=== PATIENT | male | born 1960 | race Caucasian/White ===

== ENCOUNTER 2017-09-17 06:32 | Emergency (ER) | payer OTHER ==
[~2017-09-17] VITALS: Ht 175.3 cm; Wt 111.0 kg
[2017-09-17 07:32] LABS: MEAN CORPUSCULAR HEMOGLOBIN 33.2 pg (27.5-34.5); MEAN CORPUSCULAR HGB CONC 33.2 g/dL (33.2-36.2); MEAN CORPUSCULAR VOLUME 99.8 fL (81-97); MEAN PLATELET VOLUME 8.4 fL (7.4-10.4); PLATELET COUNT 167 x10^3/uL (130-400); RED BLOOD COUNT 4.65 x10^6/uL (4.38-5.82); RED CELL DISTRIBUTION WIDTH 13.9 % (9.4-14.8)
[2017-09-17 07:48] LABS: BASOPHILS # (AUTO) 0.04 x10^3/uL (0-0.1); BASOPHILS % (AUTO) 0 % (0-1); EOSINOPHILS # (AUTO) 0.07 x10^3/uL (0-0.4); EOSINOPHILS % (AUTO) 1 % (1-7); LYMPHOCYTES # (AUTO) 2.38 x10^3/uL (1-3.4); LYMPHOCYTES % (AUTO) 21 % (22-44); MD SCAN; MONOCYTES # (AUTO) 1.49 x10^3/uL (0.2-0.8); MONOCYTES % (AUTO) 13 % (2-9); NEUTROPHILS # (AUTO) 7.63 x10^3/uL (1.8-6.8); NEUTROPHILS % (AUTO) 66 % (42-75)
[2017-09-17 07:49] LABS: ALBUMIN 3.2 g/dL (3.4-5.0); ANION GAP 8 mmol/L (5-15); CALCIUM 8.1 mg/dL (8.5-10.1); CHLORIDE 102 mmol/L (98-107)
[2017-09-17 07:54] LABS: ALANINE AMINOTRANSFERASE 49 U/L (12-78); ALKALINE PHOSPHATASE 43 U/L (45-117); BILIRUBIN,TOTAL 1.2 mg/dL (0.2-1.0); CREATININE 0.73 mg/dL (0.7-1.3); TOTAL PROTEIN 6.6 g/dL (6.4-8.2)
[2017-09-17 08:00] LABS: MICROSCOPIC NOT IND
[2017-09-17 08:05] LABS: CULTURE INDICATED? NO
[2017-09-17] MEDS ORDERED: OMEP-110 PO (09:36)
[2017-09-17] MEDS ORDERED: MAGN420T PO (09:36)
[2017-09-17] MEDS ORDERED: TRIA1TAB3 PO (09:37)
[2017-09-17] MEDS ORDERED: LABE200T3 PO (09:38)
[2017-09-17] MEDS ORDERED: AMLO5TAB2 PO (09:38)
[2017-09-17] MEDS ORDERED: METF500T27 PO (09:39)
[2017-09-17] MEDS ORDERED: LOSA50TA6 PO (09:40)
[2017-09-17] MEDS ORDERED: ALLO300T PO (09:40)
[2017-09-17] MEDS ORDERED: GLIP10TA13 PO ×2 (09:41→09:42)
[2017-09-17] MEDS ORDERED: ROSU5TAB PO (09:41)
[2017-09-17] MEDS ORDERED: NIAC500T10 PO (09:43)
[2017-09-17] MEDS ORDERED: EMPA10TA PO (09:44)
[2017-09-17] MEDS ORDERED: ASPI-496 PO (09:44)
[2017-09-17] MEDS ORDERED: CYAN1TAB29 PO (09:45)
[2017-09-17] MEDS ORDERED: CHOL5000 PO (09:45)
[2017-09-17] MEDS ORDERED: MULT-717 PO (09:46)
[2017-09-17] MEDS ORDERED: OMEG1CAP39 PO (09:46)
[2017-09-17 10:01] VITALS: BP 168/84
== END 2017-09-17 10:33 | disposition home or self-care (01) ==
LOC: ED 08:09
DX: S39.012A Strain of muscle, fascia and tendon of lower back, initial encounter (principal); S00.532A Contusion of oral cavity, initial encounter; G89.29 Other chronic pain; M50.31 Other cervical disc degeneration, high cervical region; M48.02 Spinal stenosis, cervical region; I10 Essential (primary) hypertension; E78.00 Pure hypercholesterolemia, unspecified; M10.9 Gout, unspecified; E11.9 Type 2 diabetes mellitus without complications; X58.XXXA Exposure to other specified factors, initial encounter; Y93.89 Activity, other specified; Y92.89 Other specified places as the place of occurrence of the external cause; Y99.8 Other external cause status; Z98.890 Other specified postprocedural states
CPT/HCPCS: 36415; 80053; 80307; 81003; 85025; 99284